=== PATIENT | female | born 1955 | race African-American/Black ===

== ENCOUNTER → 2021-09-06 | Outpatient (CLI) | payer OTHER | LOC: RAD 11:29 | PROVIDERS: ATTEND Podiatrist Foot & Ankle Surgery | DX: G60.9 Hereditary and idiopathic neuropathy, unspecified (principal); R60.9 Edema, unspecified; E10.42 Type 1 diabetes mellitus with diabetic polyneuropathy; M10.9 Gout, unspecified | CPT/HCPCS: 93971 ==